=== PATIENT | male | born 1935 | race Caucasian/White ===

== ENCOUNTER 2019-05-23 10:04 | Inpatient (IN) | payer MEDICARE, SELFPAY ==
[2019-05-23] VITALS (37 sets, daily range): BP systolic 82–102; BP diastolic 47–69; PULSE 64–140; RESP 0–34; TEMP 36.2–38.2; O2SAT 90–97
--- NOTE | 2019-05-23 10:22 | W.ED.GENAD ---
Discharge Plan Disposition Patient Disposition: [facility] INPATIENT Condition: Stable Discharge Details Chief Complaint: Fever Clinical Impression: Fever Primary Care Provider: Unknown,Unknown ED Provider: Edson Xiao Home Meds and New Rx's Prescriptions: No Action aspirin [Aspirin Low-Strength] 81 MG tablet,chewable 81 mg PO BID RF: 0 lisinopril 2.5 MG tablet 2.5 mg PO DAILY RF: 0 metoprolol tartrate 25 MG tablet 50 mg PO DAILY RF: 0 Januvia 25 MG tablet 50 mg PO DAILY RF: 0 tramadol 50 mg Tablet 50 mg PO .[id number] PRNRF: 0 acetaminophen [Tylenol Extra Strength] 500 mg Tablet 500 mg PO PRNRF: 0 furosemide [Lasix] 20 mg Tablet 20 mg PO PRNRF: 0 Creon 6,000-19,000 -30,000 unit Capsule,Delayed Release(Dr/Ec) 6,000 cap PO BID RF: 0 Glucosamin Chondroitin 500 mg PO DAILY RF: 0 Medical Decision Making 84 yo male with hx of metastatic pancreatitic cancer undergoing chemotherapy who comes in with shaking chills that started around 3am as well as fever and general weakness. Denies any pain, vomit, rashes, recent travel. He is in no distress on exam and does appear dehydrated. Has a port without evidence of infection overlying the site. He is febrile here so will obtain cultures and lab work and a chest xray and monitor pt remains stable, labs show wbc of 13 without neutropenia. Xray on my read shows likely rlll infiltrate. Given his cough and o2 saturations in the low 90's suspect pna and will cover with broad spectrum abx and admit Differential Diagnosis pna, neutropenic fever Imaging Data Radiologic Study: Attestation: I personally reviewed and interpreted this imaging study as follows: Imaging: X-Ray Radiologist's impression: IMPRESSION: Findings most likely due to pulmonary metastatic disease. ECG Data Attestation: I personally reviewed and interpreted this ECG (s) as follows: Prior ECG tracings: not available for review Interpretation: sinus tachycardia, rate of 109, pr 140 HPI General Mode of arrival: ambulatory. Date/Time Provider Initiated Documentation: 05/23/19 10:11. Limitations to Documentation: no limitations. Information obtained by: patient. History of Present Illness 84 year old M presents to the emergency department with the chief complaint of weakness, described as moderate, Patient started experiencing this hour(s) (7) and it has been constant. No relieving factors improve symptom(s), No exacerbating factors reported . Patient notes cough. Patient did receive the following treatments prior to arrival, none Related Data Home Medications Medication Instructions Recorded Confirmed aspirin [Aspirin Low-Strength] 81 mg PO BID 06/09/16 05/23/19 lisinopril 2.5 mg PO DAILY 06/09/16 05/23/19 metoprolol tartrate 50 mg PO DAILY 06/09/16 05/23/19 sitagliptin [Januvia] 50 mg PO DAILY 06/09/16 05/23/19 Glucosamin Chondroitin 500 mg PO DAILY 05/23/19 acetaminophen [Tylenol Extra 500 mg PO PRN 05/23/19 Strength] furosemide [Lasix] 20 mg PO PRN 05/23/19 [id number] [Creon] 6,000 cap PO BID 05/23/19 05/23/19 tramadol 50 mg PO .[id number] PRN 05/23/19 05/23/19 Allergies Allergy/AdvReac Type Severity Reaction Status Date / Time No Known Allergies Allergy Unverified 05/23/19 10:14 General Stated Complaint: Fever BERNADINE: 2 Review of Systems Review of Systems All systems reviewed & are unremarkable except as noted in HPI and below ENT Denies change in voice Cardiovascular Denies chest pain and Denies dyspnea Respiratory Denies dyspnea Gastrointestinal Denies abdominal pain, Denies nausea and Denies vomiting Genitourinary Denies dysuria Integumentary/Breasts Denies rash PFSH Social History Smoking/Tobacco Use Status: Former Tobacco Use Drug use: Never Exam Const General: no acute distress Orientation: alert [facility] Head: normal to inspection Ears: external ears normal General nose exam: external nose normal Eyes General: appearance normal, both eyes and all related structures Neck Neck: normal visual inspection Resp Effort & Inspection: normal respiratory effort and able to speak in complete sentences Cardio Rate: regular rate Skin General skin exam: no rashes or lesions noted Neuro General: alert and oriented x3 Extrem General: normal to inspection Psych Mental Status: mental status grossly normal Course Vital Signs Temperature 38.2 C H 05/23/19 10:10 Pulse 108 H 05/23/19 10:10 Respiratory Rate 28 H 05/23/19 10:10 Blood Pressure 99/56 L 05/23/19 10:10 Pulse Oximetry 92 L 05/23/19 10:10 Temperature 38.2 C H 05/23/19 10:10 Temperature Source Oral 05/23/19 10:10 Pulse 108 H 05/23/19 10:10 Respiratory Rate 28 H 05/23/19 10:10 Respiratory Effort Non-Labored 05/23/19 10:10 Blood Pressure 99/56 L 05/23/19 10:10 Pulse Oximetry 92 L 05/23/19 10:10 Oxygen Delivery Method Room Air 05/23/19 10:10 Oxygen Flow Rate 0 05/23/19 10:10 Pain Level 0 05/23/19 10:10 Lab/Test Results Lab/Test Results: 05/23/19 10:16 Blood Blood Culture - Pending 05/23/19 10:16 Blood Blood Culture - Pending
[2019-05-23] MEDS: Normal Saline 1,000 ML 1000 ML IV ×2 (10:40→12:30)
[2019-05-23 10:45] LABS: Lactate-non-spesis 0.8 mmol/l (0.6-1.4)
[2019-05-23 10:49] LABS: Abs Immature Grans 0.03 k/cumm (0.0-0.09); Absolute Basophil Count 0.03 k/cumm (0.0-0.2); Absolute Lymphocyte Count 1.61 k/cumm (1.2-3.4); Absolute Monocyte Count 1.17 k/cumm (0.11-0.7); Absolute Neutrophil Count 10.33 k/cumm (1.2-6.7); Basophils % 0.2; HCT 28.9 % (40.0-50.0); HGB 9.6 g/dL (13.5-17.5); Immature Grans % 0.2; Lymphocytes % 12.2; Mean Corp. HGB Concentration 33.2 g/dL (32.0-36.0); Mean Corpuscular Hemoglobin 30.8 pg (27.0-33.0); Mean Corpuscular Volume 92.6 fL (80-95); Mean Platelet Volume 10.2 fL (8.0-11.0); Monocytes % 8.9; Neutrophils % 78.5; Platelet Count 186 x1000/uL (130-400); RBC 3.12 m/cumm (4.50-6.00); RBC Distribution Width 16.6 % (11.8-14.1); White Blood Cell Count 13.16 k/cumm (4.4-10.8)
[2019-05-23 11:04] LABS: ALT 18 U/L (12-78); AST 20 U/L (15-37); Albumin 2.1 g/dL (3.4-5.0); Alkaline Phosphatase 62 U/L (46-116); Anion Gap 7.4 mmol/L (3-11); BUN 35 mg/dL (7-18); Bilirubin, Total 0.5 mg/dL (0.2-1.0); CO2 25.6 mmol/L (21.0-32.0); Calcium 8.2 mg/dL (8.5-10.1); Chloride 97 mmol/L (98-107); Estimated GFR 41.59 (mL/min/1.73m2); Glucose 132 mg/dL (70-100); INR 1.1 (0.9-1.1); PTT Activated 25.2 sec (21.0-31.4); Potassium 4.5 mmol/L (3.5-5.1); Prothrombin Time 10.9 sec (9.3-11.0); Sodium 130 mmol/L (136-145); Total Protein 5.5 g/dL (6.4-8.2)
--- NOTE | 2019-05-23 11:12 | DI.RAD_ITS ---
SYMPTOM/DIAGNOSIS: FEVER, COUGH PORTABLE AP CHEST: There are no priors. The heart size and pulmonary vasculature are within normal limits. There is an indwelling central venous catheter. The tip of the catheter is in good position at the junction of the superior vena cava and right atrium. There are innumerable nodular opacities in the lungs. Primary diagnostic concern is for metastatic disease. There is a linear infiltrate in the left base, probably reflecting atelectasis. There is blunting of the right costophrenic angles likely reflecting a small pleural effusion. The bones are intact. They do appear to be mildly osteopenic. IMPRESSION: Multiple nodular opacities scattered throughout both lungs, likely reflecting pulmonary metastatic disease. Infectious or inflammatory process is considered less likely. If there are prior films, they may be submitted for comparison.
[2019-05-23 11:16] LABS: Procalcitonin 2.7 ng/mL
--- NOTE | 2019-05-23 11:33 | DI.VRAD_ITS ---
EXAM: XR Chest, 1 View EXAM DATE/TIME: 05/23/2019 11:12 AM CLINICAL HISTORY: 84 years old, male; Cough and fever TECHNIQUE: Imaging protocol: XR of the chest, 1 view. COMPARISON: No relevant prior studies available. FINDINGS: Tubes, catheters and devices: There is a right jugular port present with the catheter tip near the cavoatrial junction. Lungs: Innumerable nodular opacities are present in both lungs most likely due to pulmonary metastatic disease. There is left basilar discoid atelectasis. Pleural space: Trace right pleural effusion. No pneumothorax. Heart/Mediastinum: The heart is not enlarged. The mediastinal contours are normal. Bones/joints: The bones are diffusely osteopenic. There is a ramirez-shaped deformity of the rib cage consistent with this. IMPRESSION: Findings most likely due to pulmonary metastatic disease. Dictated and Authenticated by: Nish Melendrez MD. Ordering:LENKA Sandhu MD
[2019-05-23] MEDS: PIPERACILLIN/TAZO 4.5 GM in Normal Saline 100 ML IVPB (11:40)
[2019-05-23] MEDS: VANCOMYCIN 1,000 MG in Normal Saline 250 ML 166.6666 MG IVPB (12:15)
--- NOTE | 2019-05-23 13:51 | HPE_ITS ---
Date of service: 05/23/19 Time of Service: 13:51 Assessment and Plan (1) HCAP (healthcare-associated pneumonia): Start date: 05/23/19 Start time: 14:18 Current visit: Yes Status: Acute 84 y.o. M recently hospitalized at another institution for dehydration secondary to diarrhea; reports to [facility] ED for fever, chills and not feeling well. Recent chemo treatment on 05/15 for pancreatic cancer with mets to lung. Consider HCAP, in setting of fever, chills, elevated WBC. Imaging done by radiology unclear for pneumonia due to pulmonary metastatic disease. Started on vanco and zosyn. Blood cultures obtained with port culture. No cough, afebrile at this time. Continue to montior. (2) Pancreatic cancer metastasized to lung: Start date: 05/23/19 Start time: 14:21 Current visit: Yes Status: Acute See above. Last chemo treatment 05/15. Continue to monitor. (3) HTN (hypertension): Start date: 05/23/19 Start time: 14:21 Current visit: Yes Status: Chronic Previously on lisinopril, discontinued in April by PCP, bp are soft at this time. Continue to monitor. (4) Non-insulin dependent type 2 diabetes mellitus: Start date: 05/23/19 Start time: 14:22 Current visit: Yes Status: Acute Was on Januvia, recently taken off as they were told by provider that there sugars were to low. We will do SSI and monitor blood glucose. (5) H/O paroxysmal supraventricular tachycardia: Start date: 05/23/19 Start time: 14:23 Current visit: Yes Status: Acute H/O paroxysmal SVT, rate controlled at this time on BB. Continue home dose of BB and monitor. (6) RITA (acute kidney injury): Start date: 05/23/19 Start time: 14:24 Current visit: Yes Status: Acute Unsure if this is acute or chronic. Elevated Creatinine and BUN, does have pancreatic cancer. Will give gentle IV fluids and monitor renal function by am labs. (7) DVT prophylaxis: Start date: 05/23/19 Start time: 14:25 Current visit: Yes Status: Acute TEDs and SCD (8) Discharge planning issues: Start date: 05/23/19 Start time: 14:25 Current visit: Yes Status: Acute Patient would like to be a DNR with intubation. History of Present Illness Chief Complaint: HCAP Narrative: 84 y.o M with past medical history pancreatic cancer with lung mets, (currently on chemotherapy), NIDDM, SVT, HTN presents to [facility] emergency department with fever, chills, rigors. Patient woke up around 3 am not feeling, well, with fever and chills. He has been asked to be admitted by our service to M/S for pneumonia. Mr. Aguirre was currently hospitalized ([facility]) for dehydration secondary to diarrhea consistent with c-diff. He spent one week as an in patient then sent home with a 14 day course of vancomycin po. He has finished the course since then and now presents today feeling tired, with fever and chills. Imaging was obtained in the emergency department, given his metastatic disease it was unclear if this was the source; findings most likely due to pulmonary metastatic disease; given recent hospitalization, clinical sx and imaging, patient is being admitted for HCAP. Vancomycin and zosyn were started. He also has a port he receives chemo through (last chemo May 15). Both blood cultures and a port culture were done in the emergency department. WBC were slightly elevated at 13.16, He is afebrile at this time. Cdiff stool was ordered, continue to monitor patient for increase in stools. He denies n/v/d, SOB, CP, and swelling. Review of Systems Review of Systems All systems reviewed & are unremarkable except as noted in HPI and below Constitutional Reports system reviewed and no additional complaints, except as docu Eyes Reports system reviewed and no additional complaints, except as docu ENT Reports system reviewed and no additional complaints, except as [facility] Cardiovascular Reports system reviewed and no additional complaints, except as docu Respiratory Reports system reviewed and no additional complaints, except as docu Gastrointestinal Reports system reviewed and no additional complaints, except as [facility] Genitourinary Reports system reviewed and no additional complaints, except as [facility] Musculoskeletal Reports system reviewed and no additional complaints, except as [facility] Integumentary/Breasts Reports system reviewed and no additional complaints, except as docu Neurologic Reports system reviewed and no additional complaints, except as docu Psychiatric Reports system reviewed and no additional complaints, except as docu Endocrine Reports as per HPI Hematologic/Lymphatic Reports as per HPI Allergic/Immunologic Reports system reviewed and no additional complaints, except as [facility] Medical History (Updated 05/23/19 @ 14:17 by Beulah Isbell NP) H/O paroxysmal supraventricular tachycardia (Acute) HTN (hypertension) (Chronic) Non-insulin dependent type 2 diabetes mellitus (Acute) Pancreatic cancer metastasized to lung (Acute) Social History Smoking/Tobacco Use Status: Former Tobacco Use Drug use: Never Meds Home Medications Medication Instructions Recorded Confirmed Type aspirin [Aspirin Low-Strength] 81 mg PO BID 06/09/16 05/23/19 History lisinopril 2.5 mg PO DAILY 06/09/16 05/23/19 History metoprolol tartrate 50 mg PO DAILY 06/09/16 05/23/19 History sitagliptin [Januvia] 50 mg PO DAILY 06/09/16 05/23/19 History Glucosamin Chondroitin 500 mg PO DAILY 05/23/19 History acetaminophen [Tylenol Extra 500 mg PO PRN 05/23/19 History Strength] furosemide [Lasix] 20 mg PO PRN 05/23/19 History [id number] [Creon] 6,000 cap PO BID 05/23/19 05/23/19 History tramadol 50 mg PO .[id number] PRN 05/23/19 05/23/19 History Allergies Allergy/AdvReac Type Severity Reaction Status Date / Time No Known Allergies Allergy Unverified 05/23/19 10:14 Exam Narrative Exam Narrative: Const: Pleasant elderly gentlemen sitting in bed. Looking frail. HENMT-normal to inspection. Hearing intact. Wears hearing aids Eyes: PERRLA NECK: slight lymphedema more pronounced on left side. Chest: normal to inspection Resp: diminished bilaterally, no rales, crackles, wheezing or cough. Able to speak full sentences. Cardio: RRR, S1, S2 no murmur appreciated. GI: BS+ x 4 quads. no distension or pain. Does c/o diarrhea x 3 bouts a day : deferred. Skin: clean dry intact, no rash or lesion, multiple nevus to chest and back Neuro: AA0x3 Extremities: no clubbing, cyanosis, edema. Results Labs : 05/23/19 10:35 05/23/19 10:35 Laboratory Results - last 24 hr 05/23/19 05/23/19 05/23/19 10:35 10:35 10:35 WBC RBC Hgb Hct MCV MCH MCHC RDW Plt Count MPV Immature Gran % Neutrophils % Lymphocytes % Monocytes % Eosinophils % Basophils % Absolute Neutrophils Absolute Lymphocytes Absolute Monocytes Absolute Eosinophils Absolute Basophils PT INR APTT Sodium 130 L Potassium 4.5 Chloride 97 L Carbon Dioxide 25.6 Anion Gap 7.4 BUN 35 H Creatinine 1.60 H Estimated GFR/1.73 m2 41.59 Glucose 132 H Lactate 0.8 Calcium 8.2 L Magnesium 2.0 Total Bilirubin 0.5 AST 20 ALT 18 Alkaline Phosphatase 62 Total Protein 5.5 L Albumin 2.1 L Procalcitonin 2.7 05/23/19 05/23/19 10:35 10:35 WBC 13.16 H RBC 3.12 L Hgb 9.6 L Hct 28.9 L MCV 92.6 MCH 30.8 MCHC 33.2 RDW 16.6 H Plt Count 186 MPV 10.2 Immature Gran % 0.2 Neutrophils % 78.5 Lymphocytes % 12.2 Monocytes % 8.9 Eosinophils % 0.0 Basophils % 0.2 Absolute Neutrophils 10.33 H Absolute Lymphocytes 1.61 Absolute Monocytes 1.17 H Absolute Eosinophils 0.00 Absolute Basophils 0.03 PT 10.9 INR 1.1 APTT 25.2 Sodium Potassium Chloride Carbon Dioxide Anion Gap BUN Creatinine Estimated GFR/1.73 m2 Glucose Lactate Calcium Magnesium Total Bilirubin AST ALT Alkaline Phosphatase Total Protein Albumin Procalcitonin Last Vital Signs Temp 36.2 C L 05/23/19 13:05 Pulse 88 05/23/19 13:05 Resp 18 05/23/19 13:05 BP 99/57 L 05/23/19 13:05 Pulse Ox 96 05/23/19 13:05
[2019-05-23 14:54] LABS: Bilirubin Negative (Negative); Blood Negative (Negative); Clarity Clear (Clear); Glucose Negative (Negative); Ketones Negative (Negative); Leukocyte Esterase Negative (Negative); Nitrite Negative (Negative); Urobilinogen 0.2 EU/dL (Up TO 0.2)
[2019-05-23 15:03] LABS: Bacteria Rare HPF (Negative); C & S Indicated? C&S Done As Ordered; Casts Negative LPF (Negative); Crystals Negative HPF (Negative); Epithelial Cells Rare HPF (Negative); Mucus Trace (Negative); RBC 0-2 (0-2); WBC 0-2 HPF (0-5)
[2019-05-23] MEDS: Normal Saline 1,000 ML 125 ML IV (15:18)
[2019-05-23] MEDS: Lactobacillus Acidophilus CAP 1 CAP PO ×2 (15:50→19:34)
[2019-05-23] MEDS: Creon, Lipase 6,000 CAPCR 1 CAP PO (17:23)
[2019-05-23] MEDS: PIPERACILLIN/TAZO 3.375 GM in Normal Saline 50 ML IVPB (19:33)
[2019-05-23] MEDS: Aspirin 81 MG CHEW PO (19:34)
[2019-05-23] MEDS: Normal Saline Flush 10 ML SYR IVP (19:34)
[2019-05-23] MEDS: Metoprolol 25 MG TAB PO (20:31)
--- NOTE | 2019-05-23 23:02 | NUR.NOTE ---
Patient pulse rate was elevated as per monitor 140bpm, manually 117bpm. The patient voiced he normally takes metoprolol 50mg daily and he had not taken any since morning. The charge nurses was informed and metoprolol was ordered stat same administered. Pulse was rechecked manually now is 105bpm.
[2019-05-24] MEDS: Normal Saline 1,000 ML 125 ML IV (03:03)
[2019-05-24] MEDS: Normal Saline Flush 10 ML SYR IVP (03:04)
[2019-05-24] MEDS: PIPERACILLIN/TAZO 3.375 GM in Normal Saline 50 ML IVPB ×3 (03:04→19:32)
[2019-05-24 03:18] VITALS: BP 101/61; PULSE 66; RESP 18; TEMP 36.6; O2SAT 95
[2019-05-24 07:38] LABS: Abs Immature Grans 0.01 k/cumm (0.0-0.09); Absolute Basophil Count 0.02 k/cumm (0.0-0.2); Absolute Eosinophil Count 0.02 k/cumm (0.0-0.7); Absolute Lymphocyte Count 1.35 k/cumm (1.2-3.4); Absolute Monocyte Count 0.52 k/cumm (0.11-0.7); Absolute Neutrophil Count 3.32 k/cumm (1.2-6.7); Basophils % 0.4; Eosinophils % 0.4; HCT 27.9 % (40.0-50.0); HGB 9.1 g/dL (13.5-17.5); Immature Grans % 0.2; Lymphocytes % 25.8; Mean Corp. HGB Concentration 32.6 g/dL (32.0-36.0); Mean Corpuscular Hemoglobin 30.4 pg (27.0-33.0); Mean Corpuscular Volume 93.3 fL (80-95); Mean Platelet Volume 10.5 fL (8.0-11.0); Monocytes % 9.9; Neutrophils % 63.3; Platelet Count 143 x1000/uL (130-400); RBC 2.99 m/cumm (4.50-6.00); RBC Distribution Width 16.7 % (11.8-14.1); White Blood Cell Count 5.24 k/cumm (4.4-10.8)
[2019-05-24 07:44] LABS: Anion Gap 6.5 mmol/L (3-11); BUN 28 mg/dL (7-18); CO2 25.5 mmol/L (21.0-32.0); CREATININE 1.37 mg/dL (0.70-1.30); Calcium 8.2 mg/dL (8.5-10.1); Chloride 103 mmol/L (98-107); Estimated GFR 49.75 (mL/min/1.73m2); Glucose 80 mg/dL (70-100); Potassium 4.2 mmol/L (3.5-5.1); Sodium 135 mmol/L (136-145)
[2019-05-24 07:57] VITALS: BP 108/62; PULSE 64; RESP 18; TEMP 36.2; O2SAT 95
[2019-05-24] MEDS: Aspirin 81 MG CHEW PO ×2 (09:46→19:32)
[2019-05-24] MEDS: Furosemide 20 MG TAB PO (09:46)
[2019-05-24] MEDS: Lactobacillus Acidophilus CAP 1 CAP PO ×3 (09:46→19:32)
[2019-05-24] MEDS: Metoprolol 50 MG TAB PO (09:46)
[2019-05-24] MEDS: Creon, Lipase 6,000 CAPCR 1 CAP PO ×2 (09:46→17:23)
--- NOTE | 2019-05-24 10:01 | INITIAL_ITS ---
Care Management Initial Assess REASON FOR HOSPITALIZATION:: Sepsis due to HCAP PAST MEDICAL HISTORY/PAST SURGICAL HISTORY:: Paroxysmal supraventricular tachycardia, HTN, Non-insulin dependent type 2 DM, pancreatic cancer metastasized to lung PREVIOUS FUNCTIONAL STATUS/SOCIAL/FAMILY SUPPORTS:: Jesus resides with his , Leeann in [place], [place]. He is currently undergoing chemo for metastatic pancreatic cancer and struggling with increased weakness and illness. CURRENT FUNCTIONAL STATUS:: Jesus was surrounded by family members throughout the day; CM agreed to interview Jesus in a more private setting when available. ADVANCE DIRECTIVES:: None on file at [facility]. Has patient been provided with information about the portal?: Yes Did the patient sign up for the portal?: No CODE STATUS:: DNR/DNI INSURANCE COVERAGE / FINANCIAL ISSUES:: [employer] CURRENT HOME/COMMUNITY SERVICES/EQUIPMENT:: [facility]-Chemo for Metatatic Stage 4 Pancreatic Cancer-next infusion 05/27/19 PRIMARY CARE PHYSICIAN:: No local POTENTIAL DISCHARGE NEEDS:: Follow up appointments. Palliative consult request; Dr. Savage reports Palliative Consult process directed by oncologist. PATIENT/FAMILY EDUCATION NEEDS:: Review of discharge instructions, discuss Ask Me Three. ANTICIPATED BARRIERS TO DISCHARGE:: None identified. TRANSPORTATION:: Via private vehicle with , Leeann. PLAN:: Jesus will return home when ready per MD. He will follow up with his oncologist, PCP and plan of care as prescribed. He will transport via private vehicle with his , Leeann.
--- NOTE | 2019-05-24 10:58 | W.PM.PROGNOT ---
Date of Service Date of service: 05/24/19 Time of Service: 10:58 Assessment and Plan (1) HCAP (healthcare-associated pneumonia): Start date: 05/24/19 Start time: 11:01 Current visit: Yes Status: Acute Day 2 vanco and zosyn. Blood cultures pending. Leukocytosis has resolved, WBC 5.24. Denies cough, congestion, slight crackles to lower lobes bilaterally, IVF changed to 75 from 125. continue to monitor. (2) Pancreatic cancer metastasized to lung: Start date: 05/24/19 Start time: 11:03 Current visit: Yes Status: Acute Pancreatic cancer with metastatic to the lungs. Receives care through [facility] [place] Dr. Louis Ca. Last chemo treatment 05/15. Continue to monitor. Consider palliative care for this patient. Palliative care has not seen him before; a call to the oncologist tomorrow is recommended to speak about this being a possibility while patient is here. (3) HTN (hypertension): Start date: 05/24/19 Start time: 11:05 Current visit: Yes Status: Chronic Blood pressures are soft at this time. Continue to monitor. (4) Non-insulin dependent type 2 diabetes mellitus: Start date: 05/24/19 Start time: 11:06 Current visit: Yes Status: Acute Glucose 80 by am labs. Has not required insulin, continue to monitor. (5) H/O paroxysmal supraventricular tachycardia: Start date: 05/24/19 Start time: 11:06 Current visit: Yes Status: Acute H/O paroxysmal SVT, rate controlled at this time on BB. Continue home dose of BB and monitor. (6) RITA (acute kidney injury): Start date: 05/24/19 Start time: 11:06 Current visit: Yes Status: Acute Does have chronic kidney disease, however it did appear as RITA yesterday in setting of dehydration by labs compared to today. Continue gentle IVF at 75 tolerating at this time. Continue to monitor. (7) DVT prophylaxis: Start date: 05/24/19 Start time: 11:08 Current visit: Yes Status: Acute TEDs and SCD (8) Discharge planning issues: Start date: 05/24/19 Start time: 11:08 Current visit: Yes Status: Acute Patient would like to be a DNR with intubation. Possibly have palliative care see patient. Will call oncology tomorrow and see if they agree to the consult. Subjective Patient reports: no new complaints Interval history since last seen: Feeling better today. Afebrile overnight. No c/o pain. Denies n/V/d. No cough or congestion. Day 2 of vanco and zosyn. Cdiff negative for toxin, positive for antigen started on probiotic. Denies CP, SOB, swelling. Exam Narrative Exam Narrative: Const: Pleasant elderly gentlemen sitting in bed. Looking frail. HENMT-normal to inspection. Hearing intact. Wears hearing aids Eyes: PERRLA NECK: slight lymphedema more pronounced on left side. Chest: normal to inspection Resp: diminished bilaterally, no rales, slight crackles in lower bases,no wheezing or cough. Able to speak full sentences. Cardio: RRR, S1, S2 no murmur appreciated. GI: BS+ x 4 quads. no distension or pain. Does c/o diarrhea x 3 bouts a day : deferred. Skin: clean dry intact, no rash or lesion, multiple nevus to chest and back Neuro: AA0x3 Extremities: no clubbing, cyanosis, edema. Objective Objective Clinical Data: Abnormal lab results 05/23/19 05/23/19 05/24/19 Range/Units 10:35 14:43 06:45 RBC (4.50-6.00) m/cumm Hgb (13.5-17.5) g/dL Hct (40.0-50.0) % RDW (11.8-14.1) % Sodium 130 L 135 L (136-145) mmol/L Chloride 97 L (98-107) mmol/L BUN 35 H 28 H (7-18) mg/dL Creatinine 1.60 H 1.37 H (0.70-1.30) mg/dL Glucose 132 H (70-100) mg/dL Calcium 8.2 L 8.2 L (8.5-10.1) mg/dL Total Protein 5.5 L (6.4-8.2) g/dL Albumin 2.1 L (3.4-5.0) g/dL Urine Protein 100 H (Negative) mg/dL 05/24/19 Range/Units 06:45 RBC 2.99 L (4.50-6.00) m/cumm Hgb 9.1 L (13.5-17.5) g/dL Hct 27.9 L (40.0-50.0) % RDW 16.7 H (11.8-14.1) % Sodium (136-145) mmol/L Chloride (98-107) mmol/L BUN (7-18) mg/dL Creatinine (0.70-1.30) mg/dL Glucose (70-100) mg/dL Calcium (8.5-10.1) mg/dL Total Protein (6.4-8.2) g/dL Albumin (3.4-5.0) g/dL Urine Protein (Negative) mg/dL Vital Signs Temperature 36.2 C L 05/24/19 07:57 Temperature Source Tympanic 05/24/19 07:57 Pulse 64 05/24/19 07:57 Pulse Rhythm Regular 05/24/19 09:51 Pulse 89 05/23/19 12:46 Respiratory Rate 18 05/24/19 07:57 Respiratory Effort Non-Labored 05/24/19 09:51 Respiratory Depth Normal 05/24/19 09:51 Respiratory Pattern Normal 05/24/19 09:51 Blood Pressure 108/62 05/24/19 07:57 Blood Pressure Mean 60 05/23/19 12:46 Pulse Oximetry 95 05/24/19 07:57 Oxygen Delivery Method Room Air 05/24/19 07:57 Oxygen Flow Rate 0 05/24/19 07:57 Pain Level 0 05/24/19 07:57 Comment 05/24/19 00:04 Intake & Output 05/23/19 05/23/19 05/24/19 11:59 23:59 11:59 Intake Total 3640 / 3640 490 / 490 Output Total 790 / 790 1300 / 1300 Balance 2850 / 2850 -810 / -810 Weight 68 kg 68 kg 69.2 kg Intake: IV 3400 / 3400 250 / 250 Oral 240 / 240 240 / 240 Output: Urine 790 / 790 900 / 900 Stool 400 / 400 Other: Urine Color Yellow Yellow Urine Appearance Clear Clear Urine Odor Normal Normal Comment per patient verbalization Stool Size Moderate Large Stool Characteristics Soft Soft Formed Liquid Brown Voiding Methods Toilet Toilet Laboratory Results WBC 5.24 k/cumm (4.4-10.8) D 05/24/19 06:45 RBC 2.99 m/cumm (4.50-6.00) L 05/24/19 06:45 Hgb 9.1 g/dL (13.5-17.5) L 05/24/19 06:45 Hct 27.9 % (40.0-50.0) L 05/24/19 06:45 MCV 93.3 fL (80-95) 05/24/19 06:45 MCH 30.4 pg (27.0-33.0) 05/24/19 06:45 MCHC 32.6 g/dL (32.0-36.0) 05/24/19 06:45 RDW 16.7 % (11.8-14.1) H 05/24/19 06:45 Plt Count 143 x1000/uL (130-400) 05/24/19 06:45 MPV 10.5 fL (8.0-11.0) 05/24/19 06:45 Immature Gran % 0.2 05/24/19 06:45 63.3 05/24/19 06:45 25.8 05/24/19 06:45 9.9 05/24/19 06:45 0.4 05/24/19 06:45 0.4 05/24/19 06:45 Absolute Neutrophils 3.32 k/cumm (1.2-6.7) 05/24/19 06:45 Absolute Lymphocytes 1.35 k/cumm (1.2-3.4) 05/24/19 06:45 Absolute Monocytes 0.52 k/cumm (0.11-0.7) 05/24/19 06:45 Absolute Eosinophils 0.02 k/cumm (0.0-0.7) 05/24/19 06:45 Absolute Basophils 0.02 k/cumm (0.0-0.2) 05/24/19 06:45 PT 10.9 sec (9.3-11.0) 05/23/19 10:35 INR 1.1 (0.9-1.1) 05/23/19 10:35 APTT 25.2 sec (21.0-31.4) 05/23/19 10:35 Sodium 135 mmol/L (136-145) L 05/24/19 06:45 Potassium 4.2 mmol/L (3.5-5.1) 05/24/19 06:45 Chloride 103 mmol/L (98-107) 05/24/19 06:45 Carbon Dioxide 25.5 mmol/L (21.0-32.0) 05/24/19 06:45 6.5 mmol/L (3-11) 05/24/19 06:45 BUN 28 mg/dL (7-18) H 05/24/19 06:45 1.37 mg/dL (0.70-1.30) H 05/24/19 06:45 49.75 (mL/min/1.73m2) 05/24/19 06:45 Glucose 80 mg/dL (70-100) D 05/24/19 06:45 0.8 mmol/l (0.6-1.4) 05/23/19 10:35 Calcium 8.2 mg/dL (8.5-10.1) L 05/24/19 06:45 Magnesium 2.0 mg/dL (1.8-2.4) 05/24/19 06:45 0.5 mg/dL (0.2-1.0) 05/23/19 10:35 AST 20 U/L (15-37) 05/23/19 10:35 ALT 18 U/L (12-78) 05/23/19 10:35 62 U/L (46-116) 05/23/19 10:35 5.5 g/dL (6.4-8.2) L 05/23/19 10:35 2.1 g/dL (3.4-5.0) L 05/23/19 10:35 2.7 ng/mL 05/23/19 10:35 Yellow (Yellow) 05/23/19 14:43 Clear (Clear) 05/23/19 14:43 6.0 (5-8) 05/23/19 14:43 Ur Specific [place] 1.020 (1.005-1.025) 05/23/19 14:43 100 mg/dL (Negative) H 05/23/19 14:43 Negative mg/dL (Negative) 05/23/19 14:43 Negative (Negative) 05/23/19 14:43 Negative (Negative) 05/23/19 14:43 Negative (Negative) 05/23/19 14:43 0.2 EU/dL (Up TO 0.2) 05/23/19 14:43 Ur Leukocyte Esterase Negative (Negative) 05/23/19 14:43 0-2 (0-2) 05/23/19 14:43 0-2 HPF (0-5) 05/23/19 14:43 Ur Epithelial Cells Rare HPF (Negative) 05/23/19 14:43 Negative HPF (Negative) 05/23/19 14:43 Rare HPF (Negative) 05/23/19 14:43 Negative LPF (Negative) 05/23/19 14:43 Trace (Negative) 05/23/19 14:43 Ur Culture Indicated? C&s done as ordered 05/23/19 14:43 Negative mg/dL (Negative) 05/23/19 14:43
--- NOTE | 2019-05-24 11:20 | IN_ITS ---
Date of service: 05/24/19 Time of Service: 10:25 PT Notes Inpatient Physical Therapy Evaluation Date: May 24, 2019 Referring Doctor: Nayeli Savage MD PT Orders: PT CONSULT: evaluate and treat Precautions: Contact Patient Profile/Admitting Diagnosis: Jesus is a 84 year old male admitted secondary to pneumonia. He was recently hospitalized at another hospital for dehydration and comes to ED with complaints of a fever and generalized weakness. 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 He is currently undergoing chemo for metastatic pancreatic cancer and struggling with increased weakness and illness. Current Functional Limitations: Limited functional endurance. Patient reports complete independence with all ADL's prior to admission. Notes that he continues to drive independently. Subjective: Jesus was awake lying bed at time of PT consult. He declines any pain. He notes that he is overall feeling better. Objective: General Observation: IV L UE Mental Status: Alert and oriented x3 Pain: 0/10 ROM: Right Upper Extremity: WFL Left Upper Extremity: WFL Right Lower Extremity:WFL Left Lower Extremity: WFL Strength: Right Upper Extremity: Grossly 4+-5/5 Left Upper Extremity: Grossly 4+-5/5 Right Lower Extremity: 5/5 Left Lower Extremity: 5/5 Bed Mobility/Transfers: Supine-sit: I Sit-supine: I Sit-stand: S Stand-sit: S Gait: Ambulates without assisitive device 25ft without difficulty, S Balance: Static Sitting: Normal Dynamic Sitting: Normal Static Standing: Good Dynamic Standing: Good Special Tests: Mobility Limitations Standardized Measure [facility] AM-PAC 6 clicks Basic Mobility Inpatient Short Form: Raw Score: 23 Standardized Score: 56.93 CMS Score: 11.20% CMS Modifier: CI Informed Consent/Education: Patient instructed in purpose of PT consult and plan of care. Assessment: Patient is a 84 year old male referred to physical therapy services with the diagnosis of pneumonia. Patient presents with clinical signs and symptoms consistent with diagnosis, as demonstrated by the following impairment level findings: impaired functional endurance. Impairments are contributing to the following functional limitations: limited ADL tolerance and functional mobility/endurance. Patient requires skilled PT services to promote functional endurance to maximize safety to return home per MD order. Patient is assessed as a Moderate 36672 complexity based on the following: History: H/O paroxysmal supraventricular tachycardia, HTN, Non-insulin dependent type 2 diabetes mellitus, Pancreatic cancer metastasized to lung, pneumonia Examination: see above functional limitations Presentation: evolving Decision Making: Moderate Goals: Goals X1 week 1. Supine-Sit Independent 2. Sit-Supine Independent 3. Sit-Stand Independent 4. Stand-Sit Independent 5. Bed-Chair Independent 6. Chair-Bed Independent 7. Gait Independent, 200 ft or greater 8. Stairs Independent Plan of Care/Treatment Plan: 1-2x/day, 7 days/week x 1 week. Plan of care has been reviewed with the PLACING JUDGE providing the service under Physical Therapy direction. Initiate Physical Therapy intervention for strengthening, bed mobility, transfers, gait, stairs, balance training, use of assistive device. DISCHARGE RECOMMENDATIONS: Home per MD order TREATMENT CODE/TIME: 36668, 25 minute, beginning at 10:25am [facility]
[2019-05-24 11:38] VITALS: BP 110/70; PULSE 62; RESP 18; TEMP 35.5; O2SAT 96
[2019-05-24] MEDS: Insulin Aspart 300 UNITS/3 ML PEN SC ×2 (12:00→16:58)
[2019-05-24 15:38] VITALS: BP 108/69; PULSE 70; RESP 17; TEMP 36.5; O2SAT 97
--- NOTE | 2019-05-24 15:57 | PHARADMIT ---
Admission Pharmacy Clinical Review SEPSIS DUE TO HCAP Code Status .DNR with intubation Current Weight 69.2 kg Renally Cleared and Narrow Therapeutic Index Meds CrCl~40ml/min QTc Value / Action Taken QTC 442 BP Control, Fever BP 108/69 AFEBRILE now, Tmax 38.2 on admission Electrolytes reviewed Na++ 135, K+ 4.2, Mag 2.0 DVT Prophylaxis ASA 81mg po BID Opiate Usage / Scheduled Bowel Regimen Ordered yes/yes Plt/SCr for Heparin / Enoxaparin Plt 143 SCr 1.37 INR for Warfarin H/H stable, WBC/Bands H/H 9.1/37.9 WBC 5.24 Antibiotic appropriateness Vanco/Zosyn day#2 Cultures and Sensitivities blood 05/23 no growth x24h nare MRSA pending Urine negative C.Diff positive antigen Surgical ABX d/c within 24 hr DM control / Insulin Dosing BG 80 (Novolog scale) Heart Failure (Check EF%) (TULIO's, B-Block, Diuretics) Lasix, Metoprolol IV to PO Switch Home Meds Reviewed Home Meds Not Ordered Lisinopril, Glucosamine, Januvia, Comments Pancreatic cancer w/mets, recent hospitalization, completed course of oral Vanco at home for C.Diff, Palliative consult
[2019-05-24 19:12] VITALS: BP 100/62; PULSE 73; RESP 19; TEMP 36.7; O2SAT 95
[2019-05-24 19:19] LABS: Result Negative; Specimen Description Feces
[2019-05-24 23:46] VITALS: BP 104/66; PULSE 70; RESP 18; TEMP 36.9; O2SAT 93
[2019-05-25] MEDS: PIPERACILLIN/TAZO 3.375 GM in Normal Saline 50 ML IVPB (03:45)
[2019-05-25 04:15] VITALS: BP 113/70; PULSE 60; RESP 18; TEMP 36.3; O2SAT 95
[2019-05-25 08:04] VITALS: BP 132/96; PULSE 76; RESP 18; TEMP 35.8; O2SAT 96
[2019-05-25 08:41] LABS: Absolute Basophil Count 0.02 k/cumm (0.0-0.2); Absolute Eosinophil Count 0.03 k/cumm (0.0-0.7); Absolute Lymphocyte Count 1.94 k/cumm (1.2-3.4); Absolute Monocyte Count 0.54 k/cumm (0.11-0.7); Absolute Neutrophil Count 3.38 k/cumm (1.2-6.7); Basophils % 0.3; Eosinophils % 0.5; HCT 32.1 % (40.0-50.0); HGB 10.5 g/dL (13.5-17.5); Lymphocytes % 32.8; Mean Corp. HGB Concentration 32.7 g/dL (32.0-36.0); Mean Corpuscular Hemoglobin 30.1 pg (27.0-33.0); Mean Platelet Volume 10.2 fL (8.0-11.0); Monocytes % 9.1; Neutrophils % 57.3; Platelet Count 171 x1000/uL (130-400); RBC 3.49 m/cumm (4.50-6.00); RBC Distribution Width 16.8 % (11.8-14.1); White Blood Cell Count 5.91 k/cumm (4.4-10.8)
[2019-05-25 08:53] LABS: Anion Gap 7.8 mmol/L (3-11); BUN 22 mg/dL (7-18); CO2 25.2 mmol/L (21.0-32.0); CREATININE 1.46 mg/dL (0.70-1.30); Calcium 8.2 mg/dL (8.5-10.1); Chloride 102 mmol/L (98-107); Estimated GFR 46.23 (mL/min/1.73m2); Glucose 106 mg/dL (70-100); Potassium 3.9 mmol/L (3.5-5.1); Sodium 135 mmol/L (136-145)
[2019-05-25] MEDS: Aspirin 81 MG CHEW PO (08:54)
[2019-05-25] MEDS: Lactobacillus Acidophilus CAP 1 CAP PO (08:54)
[2019-05-25] MEDS: Creon, Lipase 6,000 CAPCR 1 CAP PO (08:54)
[2019-05-25] MEDS: Metoprolol 50 MG TAB PO (08:54)
[2019-05-25] MEDS: Furosemide 20 MG TAB PO (08:54)
--- NOTE | 2019-05-25 09:14 | OT.INIE ---
Occupational Therapy Notes Inpatient Occupational Therapy Evaluation Date: 05/25/19 Referring Doctor: Nayeli Savage MD OT Orders: Eval and Treat Precautions: Contact PATIENT PROFILE/ADMITTING DIAGNOSIS: Pt is an 84 year old male who was admitted through the ER to [facility] for HCAP with recent chemo tx on 05/15/19 for pancreatic cancer with mets on his lungs. Past Medical History: H/O paroxysmal supraventricular tachycardia (Acute) HTN (hypertension) (Chronic) Non-insulin dependent type 2 diabetes mellitus (Acute) Pancreatic cancer metastasized to lung (Acute) Social History/Home Situation: Pt lives in a second floor apartment with his with 12 steps to enter. He notes that he is (I) with all ADLs/IADLs. He still drives and reports that his is in fair health so he tries to (A) her as needed. He notes that he has a tub/shower which he stands in and denies the need for any DME at this time. Equipment owned/DME: Grab bars SUBJECTIVE: Pt was sitting in bed when OT arrived. He reports that he was just recently hospitalized and can walk so he doesn't feel that he will require services. OBJECTIVE: General Observation: Pt answers questions with limited response. He was pleasant. Mental Status: A&Ox4 Pain: no c/o pain ROM: RUE AROM WNL L UE AROM WNL STRENGTH: RUE Shoulder flexion 4/5. bicep 4+/5, tricep 5/5, blower and compressor assembler is strong and symmetrical LUE Shoulder flexion 4/5. bicep 4+/5, tricep 5/5, blower and compressor assembler is strong and symmetrical FUNCTIONAL MOBILITY/ADLS: Transfers Supine-sit (I) Sit-supine (I) Sit-Stand (I) Stand-sit (I) EATING (I) in seated position. DRESSING LE- (I) don and doff (B) socks with ideal technique in sitting position. Pt denies performance of all other ADLs. He does not feel that he needs OT services. BALANCE: Static sitting Normal Dynamic Sitting Normal SPECIAL TESTS: Daily Activity Limitations Standardized Measure [facility] AM -PAC ?6 clicks? Daily Activity Inpatient Short Form: Raw score: 22 Standardized score: 47.10 CMS score: 25.80% INFORMED CONSENT/EDUCATION: Pt instructed in purpose of OT Consult and plan of care. ASSESSMENT: Patient is a 84-year-old male referred to occupational therapy services with diagnosis of HCAP with recent chemo on 05/15/19 for pancreatic cancer and mets in his lung. Pt was seen for OT consult only. He reports that he is (I) and does not feel that he needs to have OT services because he is able to perform all of his ADLs/IADLs with increased (I). He was not willing to perform any bathing routines with OT and states he will perform this later. Pt denies the need for OT services and was seen for OT consult only. Based on this OT will discharge pt from skilled OT services at this time. Patient is assessed as a Low 10519 complexity based on the following: History: See Above Examination: See Above Presentation: Evolving Decision Making: Low complexity GOALS N/A PLAN OF CARE/TREATMENT PLAN: OT consult only DISCHARGE RECOMMENDATIONS Home when medically cleared per MD. TREATMENT TIME/MINUTES/CODES 03260, 15 minutes (08:05) Nohemi Gannon OTR/L [facility]
[2019-05-25] MEDS: levoFLOXacin 500 MG TAB PO (10:33)
--- NOTE | 2019-05-25 11:37 | W.PM.DS.N ---
Date of service: 05/25/19 Time of Service: 11:37 DS: Diagnosis Discharge Diagnosis (1) HCAP (healthcare-associated pneumonia): Start date: 05/25/19 Status: Acute Asessment and Plan: Appears to be improving. not requiring oxygen. Continue antibiotic course of levaquin for full 7 days. He did receive 3 days of vancomycin and zosyn. (2) Pancreatic cancer metastasized to lung: Status: Acute Asessment and Plan: Follow up with palliative care as an outpatient (3) HTN (hypertension): Status: Chronic (4) Non-insulin dependent type 2 diabetes mellitus: Status: Acute (5) H/O paroxysmal supraventricular tachycardia: Status: Acute (6) RITA (acute kidney injury): Status: Acute Asessment and Plan: chronic at baseline (7) DVT prophylaxis: Status: Acute (8) Discharge planning issues: Status: Acute Discharge Plan Disposition Patient Disposition: HOME Condition: Good Discharge Details Chief Complaint: Fever Clinical Impression: Fever Reason For Visit: SEPSIS DUE TO HCAP Admit Date/Time: 05/23/19 11:43 Admit Provider: Nayeli Savage Attending Provider: Nayeli Savage [facility]: Edson Xiao [facility] Course Hospital Course: 84 y.o M with past medical history pancreatic cancer with lung mets, (currently on chemotherapy), NIDDM, SVT, HTN presents to [facility] emergency department with fever, chills, rigors. Patient woke up around 3 am 05/23, not feeling, well, with fever and chills. He has been asked to be admitted by our service to [facility] for pneumonia. Mr. Aguirre was currently hospitalized ([facility]) for dehydration secondary to diarrhea consistent with c-diff. He spent one week as an in patient then sent home with a 14 day course of vancomycin po. He has finished the course since then and now presents today feeling tired, with fever and chills. Imaging was obtained in the emergency department, given his metastatic disease it was unclear if this was the source; findings most likely due to pulmonary metastatic disease; given recent hospitalization, clinical sx and imaging, patient is being admitted for HCAP. Vancomycin and zosyn were started. He also has a port he receives chemo through (last chemo May 15). Both blood cultures and a port culture were done in the emergency department. WBC were slightly elevated at 13.16, He is afebrile at this time. Cdiff stool was ordered, continue to monitor patient for increase in stools. He denies n/v/d, SOB, CP, and swelling. During hospital course he never required oxygen he received 3 days of vancomycin and zosyn. WBC's normalized within 24 hours, today 5.91. He never had a cough, fever, or sputum production. His lungs were diminished without crackles, wheezing or rhonchi. He did have a c-diff positive antigen, toxin negative. His stools have become more formed. No growth to date in blood cultures. Given his clinical symptoms have subsided and he is afebrile he will be discharged home with a course of levaquin and follow up in week with his PCP/oncologist. He denies CP, SOB, n/v/d, swelling. It is recommend he follow up with palliative care as an outpatient. Home Meds and New Rx's Prescriptions: New levofloxacin [Levaquin] 500 mg Tablet 500 mg PO QAM Qty: 6 RF: 0 Lactobacillus acidophilus 100 mg (1 billion cell) capsule 100 mg PO DAILY Qty: 60 RF: 0 Continued aspirin [Aspirin Low-Strength] 81 MG tablet,chewable 81 mg PO BID RF: 0 metoprolol tartrate 25 MG tablet 50 mg PO DAILY RF: 0 tramadol 50 mg Tablet 50 mg PO .[id number] PRNRF: 0 acetaminophen [Tylenol Extra Strength] 500 mg Tablet 500 mg PO PRNRF: 0 furosemide [Lasix] 20 mg Tablet 20 mg PO PRNRF: 0 Creon 6,000-19,000 -30,000 unit Capsule,Delayed Release(Dr/Ec) 6,000 cap PO BID RF: 0 Glucosamin Chondroitin 500 mg PO DAILY RF: 0 Discontinued lisinopril 2.5 MG tablet 2.5 mg PO DAILY RF: 0 Januvia 25 MG tablet 50 mg PO DAILY RF: 0 Discharge Instructions Instructions: Antibiotic Resistant Bacteria (GEN), Pancreatic Cancer (GEN), Clostridium Difficile Infection (GEN), Bacterial Pneumonia (GEN) Additional Instructions: Take full course of antibiotic Take probiotic daily Follow up with Primary Provider/oncology in 1 week. Continue to use incentive spirometer Drink plenty of fluids. Seek medical treatment immediately if you have shortness of breath, nausea, vomiting, severe diarrhea, chest pain, increased swelling Activity:: Activity as Tolerated Equipment/Supplies:: No Equipment Needed Diet:: As Tolerated Discharge Orders Discharge Orders: Discharge Order (Routine); Ordered 05/25/19 Ordered By: Beulah Isbell Exam Narrative Exam Narrative: Const: Pleasant elderly gentlemen sitting in bed. Looking frail. HENMT-normal to inspection. Hearing intact. Wears hearing aids Eyes: PERRLA NECK: no lymphedema. Chest: normal to inspection Resp: diminished bilaterally, no rales, no crackles,no wheezing or cough. Able to speak full sentences. Cardio: RRR, S1, S2 no murmur appreciated. GI: BS+ x 4 quads. no distension or pain. Does c/o diarrhea x 3 bouts a day : deferred. Skin: clean dry intact, no rash or lesion, multiple nevus to chest and back Neuro: AA0x3 Extremities: no clubbing, cyanosis, edema. DS: Data Vitals/I&O Vitals and I&O: Vital Signs Temperature 35.8 C L 05/25/19 08:04 Temperature Source Tympanic 05/25/19 08:04 Pulse 76 05/25/19 08:04 Pulse Rhythm Regular 05/24/19 20:20 Pulse 89 05/23/19 12:46 Respiratory Rate 18 05/25/19 08:04 Respiratory Effort Non-Labored 05/24/19 20:20 Respiratory Depth Normal 05/24/19 20:20 Respiratory Pattern Normal 05/24/19 20:20 Blood Pressure 132/96 H 05/25/19 08:04 Blood Pressure Mean 60 05/23/19 12:46 Pulse Oximetry 96 05/25/19 08:04 Oxygen Delivery Method Room Air 05/25/19 08:04 Oxygen Flow Rate 0 05/25/19 08:04 Pain Level 0 05/25/19 08:04 Comment 05/25/19 04:15 Intake & Output 05/24/19 05/24/19 05/25/19 11:59 23:59 11:59 Intake Total 740 / 2551.25 1811.25 / 2551.25 1190.00 / 1190.00 Output Total 1300 / 1300 Balance -560 / 1251.25 1811.25 / 1251.25 1190.00 / 1190.00 Weight 69.2 kg 69 kg Intake: IV 500 / 1181.25 681.25 / 1181.25 650.00 / 650.00 Oral 240 / 1370 1130 / 1370 540 / 540 Output: Urine 900 / 900 Stool 400 / 400 Other: Urine Color Yellow Urine Appearance Clear Urine Odor Normal Comment per patient verbalization Stool Size Large Small Stool Characteristics Soft Formed Formed Liquid Brown Voiding Methods Toilet Toilet Completed studies during hospitalization [Text1]: EXAM DATE/TIME: 05/23/2019 11:12 AM CLINICAL HISTORY: 84 years old, male; Cough and fever TECHNIQUE: Imaging protocol: XR of the chest, 1 view. COMPARISON: No relevant prior studies available. FINDINGS: Tubes, catheters and devices: There is a right jugular port present with the catheter tip near the cavoatrial junction. Lungs: Innumerable nodular opacities are present in both lungs most likely due to pulmonary metastatic disease. There is left basilar discoid atelectasis. Pleural space: Trace right pleural effusion. No pneumothorax. Heart/Mediastinum: The heart is not enlarged. The mediastinal contours are normal. Bones/joints: The bones are diffusely osteopenic. There is a ramirez-shaped deformity of the rib cage consistent with this. IMPRESSION: Findings most likely due to pulmonary metastatic disease. Labs on day of discharge: Labs from last 24 hours 05/25/19 05/25/19 05/23/19 08:30 08:30 14:43 WBC 5.91 RBC 3.49 L Hgb 10.5 L Hct 32.1 L MCV 92.0 MCH 30.1 MCHC 32.7 RDW 16.8 H Plt Count 171 MPV 10.2 Immature Gran % 0.0 Neutrophils % 57.3 Lymphocytes % 32.8 Monocytes % 9.1 Eosinophils % 0.5 Basophils % 0.3 Absolute Neutrophils 3.38 Absolute Lymphocytes 1.94 Absolute Monocytes 0.54 Absolute Eosinophils 0.03 Absolute Basophils 0.02 Sodium 135 L Potassium 3.9 Chloride 102 Carbon Dioxide 25.2 Anion Gap 7.8 BUN 22 H D Creatinine 1.46 H Estimated GFR/1.73 m2 46.23 Glucose 106 H Calcium 8.2 L Magnesium 2.0 Stl C.difficile Tox PCR Negative C.difficile Tox Source Feces Preliminary micro results at discharge 05/23/19 10:50 Blood Culture - Preliminary Blood NO GROWTH 24 HOURS 07/13/19 10:35 Blood Culture - Preliminary Blood NO GROWTH 24 HOURS PFS Medical History H/O paroxysmal supraventricular tachycardia (Acute) HTN (hypertension) (Chronic) Non-insulin dependent type 2 diabetes mellitus (Acute) Pancreatic cancer metastasized to lung (Acute) Social History Smoking/Tobacco Use Status: Former Tobacco Use Drug use: Never
[2019-05-25 11:53] LABS: Lyme Ab w Rflx to Lyme Confirm Negative
[2019-05-25 12:00] VITALS: BP 104/65; PULSE 69; RESP 18; TEMP 36; O2SAT 97
--- NOTE | 2019-05-25 12:17 | PDOC.CMDIS ---
- If Service Date Differs Date of service: 05/25/19 Time of Service: 12:17 LACE Index Scoring Tool - Questions: Length of Stay (in days): 3 Acuity (Admit via E.D.?): Yes Comorbidities: Diabetes w/o Complication, Any Tumor, Liver or Renal Disease E.D. Visits: 2 - Answers: Total Score: 13 Risk of Readmission: High Risk Care Management Discharge Reason for Hospitalization: Sepsis due to HCAP Discharge Plan: Jesus is being discharged home and follow up with oncology. Palliative referral was made however he prefers not to have a referral to our palliative program. He feels that he has a good relationship with his providers at [facility] where he also gets his treatments. He states that he has had several palliative care dicussions with his primary care and oncologist. Patient states he will not need any addtional services at this time and he was appreciative of his experaince at [facility]. His spouse is present during discharge planning and discussion and agrees with the plan. CM contacted Palliative and informed of the cancelled palliative consult.
[2019-05-25] MEDS: Heparin 500 UNITS/5 ML SYRINGE IV (12:52)
[2019-05-25] MEDS: Normal Saline Flush 10 ML SYR IVP (12:52)
--- NOTE | 2019-05-25 13:44 | PT.INTREAT ---
Date of service: 05/25/19 Time of Service: 09:00 PT Notes Inpatient Physical Therapy Treatment Note [facility] Date: 05/25/2019 PRECAUTIONS: Contact SUBJECTIVE: Jesus is agreeable to participating in PT. OBJECTIVE: Don/doff brief in standing position, independently PAIN: No complaints of pain BED MOBILITY/TRANSFERS Supine-sit: I with HOB flat Sit-supine: I with HOB flat Sit-stand: I Stand-sit: I GAIT Assistive Device: No AD Weight bearing: Full Assist: I Distance: 200' STAIRS: Up/down 6x4 and 4x6 using one rail and a step over pattern, independently ASSESSMENT: Patient demonstrates independence in transfers gait and stair training at this time. PLAN: As per primary PT TREATMENT CODE/TIME: 20 minutes; [id number]
--- NOTE | 2019-05-25 15:10 | CHAPLAIN ---
Jesus was watching something on thing his iPad when I visited. He told me that he is waiting for his to pick him up, as he's being discharged and he's happy about that. [place] and he'd looking forward to getting back their. I had a brief visit with Jesus as he seemed to want to get back to what he was watching.
--- NOTE | 2019-05-25 17:19 | PT.INDS ---
Date of service: 05/25/19 PT Notes Inpatient Physical Therapy Discharge Summary Dates: 05/26/2019 Dates of Service: 05/24/2019 through 05/25/2019 This is a clinical summary of care provided on the duration of dates listed above. No charge was made in the completion of this documentation. Referring Doctor: Nayeli Savage MD PT Orders: PT CONSULT: evaluate and treat Precautions: Contact Patient Profile/Admitting Diagnosis: Jesus is a 84 year old male admitted secondary to pneumonia. He was recently hospitalized at another hospital for dehydration and comes to ED with complaints of a fever and generalized weakness. PMHX: H/O paroxysmal supraventricular tachycardia (Acute) HTN (hypertension) (Chronic) Non-insulin dependent type 2 diabetes mellitus (Acute) Pancreatic cancer metastasized to lung (Acute) Social History/Home Situation: Jesus resides with his , Leeann in [place], [place]. He is currently undergoing chemo for metastatic pancreatic cancer and struggling with increased weakness and illness. Current Functional Limitations: Limited functional endurance. Patient reports complete independence with all ADL's prior to admission. Notes that he continues to drive independently. Subjective: NT Objective: General Observation: NT Mental Status: NT Pain:NT ROM: Right Upper Extremity: WFL Left Upper Extremity: WFL Right Lower Extremity:WFL Left Lower Extremity: WFL Strength: Right Upper Extremity: Grossly 4+-5/5 Left Upper Extremity: Grossly 4+-5/5 Right Lower Extremity: 5/5 Left Lower Extremity: 5/5 Bed Mobility/Transfers: Supine-sit: I Sit-supine: I Sit-stand: I Stand-sit: I Gait: Ambulates without assisitive device for up to 200 feet independently Balance: Static Sitting: Normal Dynamic Sitting: Normal Static Standing: Good Dynamic Standing: Good Assessment: Patient is a 84 year old male referred to physical therapy services with the diagnosis of pneumonia. Patient presents with clinical signs and symptoms consistent with diagnosis, as demonstrated by the following impairment level findings: impaired functional endurance. Impairments are contributing to the following functional limitations: limited ADL tolerance and functional mobility/endurance. Patient requires skilled PT services to promote functional endurance to maximize safety to return home per MD order. Goals: Goals X1 week 1. Supine-Sit Independent MET 2. Sit-Supine Independent MET 3. Sit-Stand Independent MET 4. Stand-Sit Independent MET 5. Bed-Chair Independent MET 6. Chair-Bed Independent MET 7. Gait Independent, 200 ft or greater MET 8. Stairs Independent MET DISCHARGE RECOMMENDATIONS: Home per MD order TREATMENT CODE/TIME: NC Thank you very much for this referral. Mary Adamson PT, DPT, CLT [facility]
[2019-05-26 15:26] LABS: Anaplasma phagocytophilum Negative (Negative); B. miyamotoi PCR Negative (Negative); Babesia divergens/MO-1 Negative (Negative); Babesia duncani Negative (Negative); Babesia microti Negative (Negative); Ehrlichia chaffeensis Negative (Negative); Ehrlichia ewingii/canis Negative (Negative); Ehrlichia muris eauclairensis Negative (Negative)
== END 2019-05-25 13:10 | disposition home or self-care (01) | DRG 194 ==
LOC: ER 12:15 → MS 13:09
PROVIDERS: Nurse Practitioner Family; Admitting Provider Internal Medicine; Emergency Provider Emergency Medicine; Visit Provider Internal Medicine
DX: J18.9 Pneumonia, unspecified organism (principal); C25.9 Malignant neoplasm of pancreas, unspecified; C78.00 Secondary malignant neoplasm of unspecified lung; N17.9 Acute kidney failure, unspecified; E86.0 Dehydration; R19.7 Diarrhea, unspecified; R53.1 Weakness; Y95 Nosocomial condition; I10 Essential (primary) hypertension; E11.9 Type 2 diabetes mellitus without complications; Z79.899 Other long term (current) drug therapy; Z45.2 Encounter for adjustment and management of vascular access device
CPT/HCPCS: 36415; 36591; 80048; 80053; 84145; 87040; 87081; 87798; 93005; 96361; 96365; 96367; 97162; 97165; 97530; 99223; 99233; 99239; 99285; 71045; 81003; 81015; 83605; 83735; 85025; 85610; 85730; 86618; 87086; 87324; 93010; J2543; J3490